=== PATIENT | male | born 1980 | race Two or more races ===

== ENCOUNTER 2025-10-04 13:38 | Outpatient (REF) | payer OTHER, SELFPAY ==
--- NOTE | 2025-10-04 | EMG_ITS ---
Chief complaint: Right hand numbness, right shoulder pain, neck pain Reason for referral: Evaluate for ulnar neuropathy Referred by: Leidy SMALL Procedure done: Right upper extremity NCS/EMG Precautions and/or limitations: None The limb temperature was monitored continuously and remained between 32-36 degrees C during the performance of the NCS. Nerve Conduction Studies Anti Sensory Summary Table ?Stim Site NR Onset (ms) Norm Onset (ms) Peak (ms) Norm Peak (ms) O-P Amp (?V) Norm O-P Amp Site1 Site2 Delta-0 (ms) Dist (cm) Jm (m/s) Norm Jm (m/s) Right Median Anti Sensory (2nd Digit) Wrist ? 3.0 3.7 <3.6 12.9 >10 Wrist 2nd Digit 3.0 14.0 47 Right Radial Anti Sensory (Thumb) Forearm ? 1.8 2.2 <3.1 12.2 Forearm Thumb 1.8 0.0 Right Ulnar Anti Sensory (5th Digit) Wrist ? 2.2 3.5 <3.7 21.9 >15.0 Wrist 5th Digit 2.2 14.0 64 Motor Summary Table ?Stim Site NR Onset (ms) Norm Onset (ms) O-P Amp (mV) Norm O-P Amp iAmp (mV) Amp (1st) (%) Site1 Site2 Delta-0 (ms) Dist (cm) Jm (m/s) Norm Jm (m/s) Right Median Motor (Abd Poll Brev) Wrist ? 4.8 <3.9 6.5 >4.5 7.8 100.0 Elbow Wrist 4.3 22.0 51 >45 Elbow ? 9.1 6.3 7.8 96.9 Right Ulnar Motor (Abd Dig Minimi) Wrist ? 3.0 <3.0 7.4 >5 8.7 100.0 B Elbow Wrist 4.0 21.0 53 >45 B Elbow ? 7.0 6.7 8.3 90.5 A Elbow B Elbow 1.4 10.0 71 >45 A Elbow ? 8.4 6.8 8.4 91.9 EMG ?Side Muscle Nerve Root Ins Act Fibs Psw Amp Dur Poly Recrt Int Pat Comment Right 1stDorInt Ulnar C8-T1 Nml Nml Nml Nml Nml 0 Nml Complete Right FlexCarpiUln Ulnar C8,T1 Nml Nml Nml Nml Nml 0 Nml Complete Right Biceps Musculocut C5-6 Nml Nml Nml Nml Nml 0 Nml Complete Right Triceps Radial C6-7-8 Nml Nml Nml Nml Nml 0 Nml Complete Right Deltoid Axillary C5-6 Nml Nml Nml Nml Nml 0 Nml Complete Paraspinal EMG ?Side Muscle Nerve Root Ins Act Fibs Psw Comment Right Cervical Upper Rami Nml Nml Nml Right Cervical Mid Rami Nml Nml Nml Right Cervical Lower Rami Nml Nml Nml FINDINGS: Right median motor nerve showed prolonged distal latency, normal amplitude and normal conduction velocity. Right median sensory nerve showed prolonged peak latency. All other nerves tested were within normal. Concentric needle EMG was performed in selected muscles of the right upper extremity and cervical paraspinals. Study did not reveal signs of electric abnormalities as shown in the table above. IMPRESSION: 1. This is an abnormal study. 2. There is electrodiagnostic evidence for right moderate-severe median neuropathy at the wrist, consistent with carpal tunnel syndrome. 3. There is no electrodiagnostic evidence for ulnar neuropathy, brachial plexopathy, or cervical radiculopathy. Thank you for your kind referral. Annabelle Benavides MD, KATHI Board Certified, [place] [employer] (ABPMR) Board Certified, [place] [employer] (ABEM) CODIN 78209 x 1 extremity MTDD
--- OUTSIDE RECORDS SUMMARY | 2025-10-04 14:03 | XMS_ITS | Clinical Summary ---
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 Active atorvastatin (LIPITOR) 20 mg tablet Take 1 tablet (20 mg total) by mouth 1 (one) time each day. 90 tablet 1 07/04/20 25 Active lisinopriL (PRINIVIL,ZESTRIL) 2.5 mg tablet Take 1 tablet (2.5 mg total) by mouth 1 (one) time each day. 90 tablet 1 07/04/20 25 Active meloxicam (Mobic) 15 mg tablet Take 1 tablet (15 mg total) by mouth 1 (one) time each day. 90 each 1 07/04/20 25 Active omeprazole (PriLOSEC) [address] capsule Take 1 capsule (20 mg total) by mouth 1 (one) time each day. Do not crush or chew. 90 capsule 1 07/04/20 25 Active semaglutide (OZEMPIC) 1 mg/dose (4 mg/3 mL) injection penIndications:Type 2 diabetes mellitus with microalbuminuria (CMS/HCC V24, CMS/HCC V28) Inject 1 mg under the skin every 7 (seven) days. 9 mL 1 07/04/20 25 Active metFORMIN XR (GLUCOPHAGE-XR) 500 mg 24 hr tablet TAKE 2 TABLETS BY MOUTH TWICE A DAY WITH MEALS 360 tablet 1 09/23/20 25 Active gabapentin (NEURONTIN) 100 mg capsule TAKE 1 CAPSULE BY MOUTH AT BEDTIME. 90 capsule 09/27/20 25 Active metFORMIN XR (GLUCOPHAGE-XR) 500 mg 24 hr tablet TAKE 2 TABLETS BY MOUTH TWICE A DAY WITH MEALS 360 tablet 1 04/01/20 25 025 Discontinued gabapentin (NEURONTIN) 100 mg capsule TAKE 1 CAPSULE BY MOUTH AT BEDTIME. 90 capsule 07/02/20 25 025 Discontinued Active Problems Problem Noted Date Diagnosed Date Gastroesophageal reflux disease without esophagi tis 12/22/2020 Nephropathy due to secondary diabetes ([facility] V24, [facility] V28) 03/20/2019 Hyperlipidemia LDL goal <100 12/15/2017 Overview (10/04/2024): Last Assessment & Plan: Continue atorvastatin 20 mg daily. Labs ordered to be done in the next few days. Discussed diet, exercise and weight loss. We will continue to monitor and adjust treatment as indicated. Obesity (BMI 30-39.9) 03/15/2017 Type 2 diabetes mellitus wit h microalbuminuria ([facility] V24, [facility] V28) 09/08/2015 Overview (10/04/2024): Uncontrolled type 2 diabetes mellitus with microalbuminuria Last Assessment & Plan: Continue Metformin 500 mg two tabs twice a day, Januvia 100 mg daily and glimepiride 4 mg twice a day. Continue lisinopril 2.5 mg daily for kidney protection secondary to nephropathy related to diabetes with microalbuminuria in 2019. Labs ordered to be done in the next few days. Discussed in detail diet to help control his blood sugars. Encouraged a low-fat, lean protein, high-fiber, low carbohydrate diet. Discussed avoiding sweets and junk food. Decrease the amount of bread, rice, pasta and potatoes. Regular exercise also encouraged to help with weight loss and provide cardiovascular benefit. Patient encouraged to check his blood sugars twice a day. Also encouraged to call back to diabetes clinic for follow-up appointment that they had reached out to him for. Recheck in office in 3 months, return sooner as needed. Encounters Date Type Department Care Team Description 08/14/2025 3:30 PM EDT Office Visit Orthopedic Surgery - [place] [address] [facility] [place] [address] [place] [phone] Leidy Alston PA Chronic right shoulder pain (Primary Dx); CMC arthritis; Right elbow pain 07/19/2025 3:15 PM EDT Consult Orthopedic Surgery [facility] [address] [facility] [place] [address] [place] [phone] Leidy Alston PA Biceps tendinitis of right upper extremity (Primary Dx); Medial epicondylitis of right elbow; Paresthesias in right hand; CMC arthritis 07/04/2025 3:30 PM EDT Office Visit [address] [phone] Rich Alberto PA Type 2 diabetes mellitus with microalbuminuria (CMS/HCC V24, CMS/[facility] V28) (Primary Dx); Nephropathy due to secondary diabetes (CMS/HCC V24, CMS/HCC V28); Hyperlipidemia LDL goal <100; Gastroesophageal reflux disease without esophagitis; Medial epicondylitis of right elbow; Chronic right shoulder pain from Last 3 Months Immunizations Immunization Administration Dates Next Due Influenza Quadravalent, MDCK , 0.5ml, preservative free (Flucelvax) 6mo and older 01/18/2024,08/13/2021,10/19/2019,12/21 Influenza trivalent, 0.5mL, preservative free (Fluarix; FluLaval; Fluzone) ages 6mo and older (Afluria) 3 years and older 12/18/2017,08/11/2016,09/08/2015,11/05,08/16/2013 Influenza trivalent, with pr eservative (Fluzone; Afluria) 6mo and older 08/18/2024 Influenza, Unspecified 11/29/2022 Pfizer (ages 12 & older) Biv alent, COVID-19 08/18/2024,11/29/2022 Pfizer SARS-CoV-2 COVID-19, mRNA, LNP-S, preservative free 11/02/2021 Pneumococcal polysaccharide 23 valent (Pneumovax 23) 2yo and older 03/12/2014 Tdap Tetanus diptheria acell ular pertussis (Boostrix; Adacel) 7yo and older 01/18/2024,03/09/2013 Surgical History Surgery Date Site/Laterality Comments OTHER SURGICAL HISTORY 2011 PROCEDURE: [place] I&D ABSCESS PERITONSILLAR OTHER SURGICAL HISTORY 04/2019 PROCEDURE: SURGICAL STENT; COMMENT: Left kidney for stone. Removed 05/[address] Mayen Medical History Medical History Date Comments Historical Medical DX DX:NO ACTI VE MEDICAL PROBLEMS; COMMENT: 2004 Peritonsillar abscess DX:Periton sillar abscess Type II or unspecified type diabetes mellitus with unspecified complication, not stated as uncontrolled DX:Type II or unspecified t ype diabetes mellitus with unspecified complication, not stated as uncontrolled Gastroesophageal reflux dise ase without esophagitis 12/22/2020 DX:Gastroesophageal reflux d isease without esophagitis Family History Medical History Relation Name Comments No Known Problems Aunt No Known Problems Brother Diabetes Father No Known Problems Maternal Grandfather No Known Problems Maternal Grandmother Cataracts Mother Diabetes Mother No Known Problems Other No Known Problems Paternal Grandfather No Known Problems Paternal Grandmother No Known Problems Sister 1 No Known Problems Sister 2 No Known Problems Uncle Blindness Neg Hx Glaucoma Neg Hx Macular degeneration Neg Hx Strabismus Neg Hx Relation Name Status Comments Aunt Brother Alive Father Alive Maternal Grandfather Maternal Grandmother Mother Alive dm Other Paternal Grandfather Paternal Grandmother Sister 1 Alive Sister 2 Alive Uncle Social History Tobacco Use Types Packs/Day Years Used Date Smoking Tobacco: Former Cigarettes 0 Q uit: 11/14/2015 Smokeless Tobacco: Never Tobacco Cessation:Counseling Given: Not Answered Alcohol Use Standard Drinks/Week Comments No 0 (1 standard drink = 0.6 oz pur e alcohol) Housing Instability Answer Date Recorde d Are you worried that in the next 2 months you may not have stable housing? No 07/03/2025 Food Access & Nutrition Answer Date Rec orded Do you have access to a vari ety of food including fruits and vegetables? Yes 07/03/2025 Health Literacy Answer Date Recorded How often do you need to hav e someone help you when you read instructions, pamphlets, or other written material from your doctor or pharmacy? Sometimes 07/03/2025 Caregiver: How often do you need to have someone help you when you read instructions, pamphlets, or other written material from your doctor or pharmacy? Not on file 07/03/2025 Financial Risk Answer Date Recorded How hard is it for you to pa y for the very basics like food, housing, medical care, and air conditioning / heating? Not very hard 07/03/2025 Transportation Answer Date Recorded Has the lack of transportati on kept you from meetings, work, or from getting things needed for daily living? No Has the lack of transportati on kept you from medical appointments or from getting medications? No 07/03/2025 Social Isolation Answer Date Recorded How often do you feel lonely or isolated from th ose around you? Never 07/03/2025 Food Risk Answer Date Recorded Within the past 12 months we worried whether our food would run out before we got money to buy more. Never true 07/03/2025 Within the past 12 months th e food we bought just didn't last and we didn't have money to get more. Never true 07/03/2025 Dependent Care Answer Date Recorded Do you need help finding or paying for care for your loved ones. For example, child support investigator or elderly care for an older adult? No 07/03/2025 Education Answer Date Recorded Do you think completing more education or training, like finishing a GED, going to college, or learning a trade, would be helpful for you? N/A 07/03/2025 Employment and Income Answer Date Recor ded During the last four weeks, have you been actively looking for work? No 07/03/2025 Living Situation Answer Date Recorded What is your living situation? Unrecognized valu e 07/03/2025 Sex and Gender Information Value Date Recorded Sex Assigned at Not on file Legal Sex Male 7:33 PM EST Gender Identity Not on file Sexual Orientation Not on file Obstetrics History Last Filed Vital Signs Vital Sign Reading Time Taken Comments Blood Pressure 114/78 07/04/2025 3:19 PM EDT Pulse 88 07/04/2025 3:19 PM EDT Temperature 36.6 C (97.8 F) 07/04/2025 3:19 PM EDT Respiratory Rate 14 07/04/2025 3:19 PM EDT Oxygen Saturation - - Inhaled Oxygen Concentration - - Weight 110 kg (243 lb) 08/14/2025 3:26 PM EDT Height 180.3 cm (5' 10.98 ) 08/14/2025 3:26 PM E DT Body Mass Index 33.91 08/14/2025 3:26 PM EDT Plan of Treatment Upcoming Encounters Date Type Department Care Team (Late st Contact Info) Description 10/14/2025 3:45 PM EST Office Visit Orthopedic Surgery - [place] 175 [facility] [address] [place] [phone] Leidy Alston PA 175 [facility] [place] [address] [place] [phone] 01/21/2026 4:00 PM EDT Office Visit Adult Medicine [facility] [address] [place] [address] Deb Marshall MD [address] [place] [phone] Health Maintenance Due Date Last Done Comments Colorectal Cancer Screening: Colonoscopy 1978 Hepatitis B Vaccines (1 of 3 - 19+ 3-dose series) 1997 Pneumococcal Vaccine: Pediatrics (0 to 5 Years) and At-Risk Patients (6 to 49 Years) (2 of 2 - PCV) 03/12/2015 03/12/2014 HIV Screening 10/23/2022 Hepatitis C Screening 10/23/2022 Diabetes: Annual Foot Exam 05/21/2025 05/21/2024 COVID-19 Vaccine ( season) 2025 08/18/2024, 11/29/2022, 11/02/2021, Additional history exists Influenza Vaccine (#1) 2025 , 01/18/2024, 11/29/2022, Additional history exists Diabetes: Annual Retina Eye Exam 08/14/2025 08/14/2024 Diabetes: Blood Sugar Control Test (HGBA1C) 01/04/2026 07/04/2025, 01/01/2025, 08/21/2024, Additional history exists Social Influencers of Health Screening 07/03/2026 07/03/2025 Diabetes: Annual Urine Albumin-Creatinine Ratio (uACR) 07/04/2026 07/04/2025, 05/21/2024 Diabetes: Annual GFR (Glomerular Filtration Rate) 07/04/2026 07/04/2025, 01/01/2025, 08/21/2024, Additional history exists Cholesterol Screening (Lipid Panel) 01/01/2030 01/01/2025, 05/21/2024 DTaP,Tdap,and Td Vaccines (3 - Td or Tdap) 01/17/2034 01/18/2024, 03/09/2013 RSV Immunization Adult Patients (1 - 1-dose 75+ series) 2053 Depression Screening Completed 07/03/2025 HIB Vaccines Aged Out No longer eligi ble based on patient's age to complete this topic HPV Vaccines Aged Out No longer eligi ble based on patient's age to complete this topic Hepatitis A Vaccines Aged Out No long er eligible based on patient's age to complete this topic IPV Vaccines Aged Out No longer eligi ble based on patient's age to complete this topic MMR Vaccines Aged Out No longer eligi ble based on patient's age to complete this topic Meningococcal ACWY Vaccine Aged Out N o longer eligible based on patient's age to complete this topic Meningococcal B Vaccine Aged Out No l onger eligible based on patient's age to complete this topic RSV Immunization Patients Under 20 months Aged Out No longer eligible based on patient's age to complete this topic Varicella Vaccines Aged Out No longer eligible based on patient's age to complete this topic Procedures Procedure Name Priority Date/Time Associated Diagnosis Comments NJ ARTHROCENTESIS/ASPIR ATION/INJECTION SMALL JOINT/BURSA WO U/S GUIDANCE Routine 08/14/2025 3:30 PM EDT CMC arthritis XR SHOULDER 2+ VIEWS RIGHT Routine 07/19/2025 3:48 PM EDT Pain XR ELBOW 3+ VIEWS RIGHT Routine 07/19/2025 3:46 PM EDT Pain XR HAND 3+ VIEWS RIGHT Routine 07/19/2025 3:46 PM EDT Pain HEMOGLOBIN A1C Routine 07/04/2025 3:59 PM EDT Type 2 diabetes mellitus with microalbuminuria ([facility] V24, [facility] V28) BASIC METABOLIC PANEL Routine 07/04/2025 3:59 PM EDT Nephropathy due to secondary diabetes ([facility] V24, CMS/[facility] V28) MICROALBUMIN CREATININE URINE RATIO Routine 07/04/2025 3:59 PM EDT Type 2 diabetes mellitus with microalbuminuria ([facility] V24, CMS/[facility] V28) POC GLUCOSE Routine 07/04/2025 3:23 PM EDT Type 2 diabetes mellitus with microalbuminuria ([facility] V24, CMS/[facility] V28) LIPID PANEL WITH REFLEX TO DIRECT LDL Routine 01/01/2025 8:56 AM EST Hyperlipidemia LDL goal <100 DIABETES EYE EXAM Routine 08/14/2024 DIABETES FOOT EXAM Routine 05/21/2024 from Last 3 Months or Most Recently Relevant to Health Maintenance Results * NJ ARTHROCENTESIS/ASPIRATION/INJECTION SMALL JOINT/BURSA WO U/S GUIDANCE (08/14/2025 3:30 PM EDT) Narrative Leidy Alston PA - 08/14/2025 3:30 PM EDT STACI Torre 08/14/2025 8:03 PM Hand / UE Inj/Asp: R thumb CMC for osteoarthritis Indications: pain Details: 25 G needle, dorsal approach Medications: 40 mg triamcinolone acetonide 40 mg/mL; 0.5 mL lidocaine 1 % Informed Consent: Laterality: Right Relevant images/test results available and reviewed: yes Health status cleared: Yes Procedure/treatment, purpose, treatment alternatives, risks/potential complications and benefits explained: yes Risk/complications/benefits details: Risks of infection, thinning of the skin, skin discoloration discussed. Discussed the possibility of increased pain, mild redness and swelling at injection site. Discussed uncommon side effect of facial flushing after cortisone injection. Patient may use ice, Tylenol or ibuprofen if they can take it. Benefits pain management Patient questions answered: yes Patient agrees, verbalizes understanding, and wants to proceed: yes Consent given by: Patient Informed consent discussion completed by Physician/ALVARADO with patient: Verbal Pre-procedure timeout performed: yes us Leidy SMALL IN CLINIC/BEDSIDE ORDERABLES Final Result * XR Shoulder 2+ Views Right (07/19/2025 3:48 PM EDT) Anatomical Region Laterality Modality Upper Extremities, Shoulder Right Comp uted Radiography Narrative 07/19/2025 4:32 PM EDT Date of Visit: 07/19/2025 Reason for visit: Right shoulder pain Views: AP, Grashey, Y right shoulder Comparison: X-rays from 2021 Findings: Mild AC joint arthritis. No glenohumeral arthritis. No proximal migration humeral head. No calcifications. Mild narrowing of subacromial space. No changes. Impression: Mild AC joint arthritis and narrowing the subacromial space. us Leidy SMALL IMG XR PROCEDURES Final Resul t * XR Elbow 3+ Views Right (07/19/2025 3:46 PM EDT) Anatomical Region Laterality Modality Upper Extremities, Elbow Right Compute d Radiography Narrative 07/19/2025 4:33 PM EDT Date of Visit: 07/19/2025 Reason for visit: Right elbow pain Views: AP, lateral, oblique right elbow Comparison: 2021 Findings: No fracture, dislocation or lytic lesions. Normal radiocapitellar bony relationships. There is a moderate-sized bone spur off the medial epicondyles Impression: Bone spur off medial epicondyles questionable old injury us Leidy SMALL IMG XR PROCEDURES Final Resul t * XR Hand 3+ Views Right (07/19/2025 3:46 PM EDT) Anatomical Region Laterality Modality Upper Extremities, Hand Right Computed Radiography Narrative 07/19/2025 4:34 PM EDT Date of Visit: 07/19/2025 Reason for visit: Right hand pain Views: AP, lateral, oblique right hand Comparison: None Findings: No fracture, dislocation or lytic lesions. Mild osteoarthritis of right thumb basal joint. Impression: Mild osteoarthritis right thumb basal joint Leidy SMALL IMG XR PROCEDURES Final Resul t * Microalbumin creatinine urine ratio (07/04/2025 3:59 PM EDT) Creatinine, Urine 129.0 mg/dL LAB CHEMISTRY METHOD 07/04/2025 7:48 PM EDT [facility] Microalb, Ur 23.7 0.0 - 29.0 mg/L LAB CHEMISTRY METHOD 07/04/2025 7:48 PM EDT [facility] Microalb/Creat Ratio 18 <30 mg/g creat LAB CHEMISTRY METHOD 07/04/2025 7:48 PM EDT [facility] Urine Urine specimen obtained by clean catch procedure / Unknown Non-blood Collection / Unknown 07/04/2025 3:59 PM EDT 07/04/2025 3:59 PM EDT Rich SMALL LAB URINE ORDERABLES Final Res ult [facility] [address] [place] [address], * (ABNORMAL) Hemoglobin A1c (07/04/2025 3:59 PM EDT) Hemoglobin A1C 6.7(H) <6.5 % LAB CHEMISTRY METHOD 07/04/2025 11:12 PM EDT [facility] Mean Bld Glu Estim. 146 mg/dL LAB CHEMISTRY METHOD 07/04/2025 11:12 PM EDT [facility] Blood Venous blood specimen / Unknown Venipuncture / Unknown 07/04/2025 3:59 PM EDT 07/04/2025 3:59 PM EDT us Rich SMALL LAB BLOOD ORDERABLES Final Res ult [facility] [address] [place] [address], * (ABNORMAL) Basic metabolic panel (07/04/2025 3:59 PM EDT) Sodium 136 133 - 145 mmol/L LAB CHEMISTRY METHOD 07/04/2025 6:25 PM EDT [facility] Potassium 3.9 3.5 - 5.5 mmol/L LAB CHEMISTRY METHOD 07/04/2025 6:25 PM [facility] Chloride 105 96 - 110 mmol/L LAB CHEMISTRY METHOD 07/04/2025 6:25 PM [facility] CO2 25 21 - 32 mmol/L LAB CHEMISTRY METHOD 07/04/2025 6:25 PM [facility] Anion Gap 6 3 - 11 LAB CHEMISTRY METHOD 07/04/2025 6:25 PM [facility] Glucose 78 70 - 100 mg/dL LAB CHEMISTRY METHOD 07/04/2025 6:25 PM [facility] BUN 15 5 - 25 mg/dL LAB CHEMISTRY METHOD 07/04/2025 6:25 PM [facility] Creatinine 0.66(L) 0.70 - 1.30 mg/dL LAB CHEMISTRY METHOD 07/04/2025 6:25 PM [facility] eGFR 117 >=60 mL/min/1. 73m2 LAB CHEMISTRY METHOD 07/04/2025 6:25 PM [facility] Comment:Calculation based on the Chronic Kidney Disease Epidemiology Collaboration (CKD-EPI) equation refit without adjustment for race. BUN/Creatinine Ratio 22.7 LAB CHEMISTRY METHOD 07/04/2025 6:25 PM [facility] Calcium 9.3 8.5 - 10.5 mg/dL LAB CHEMISTRY METHOD 07/04/2025 6:25 PM EDT [facility] Blood Venous blood specimen / Unknown Venipuncture / Unknown 07/04/2025 3:59 PM EDT 07/04/2025 3:59 PM EDT us Rich SMALL LAB BLOOD ORDERABLES Final Res ult [facility] [address] [place] [address], [place] [phone] * POC glucose manually resulted (07/04/2025 3:23 PM EDT) Glucose POC 70 mg/dL Blood Capillary blood specimen / Unknown 07/04/2025 3:23 PM EDT us Rich SMALL POINT OF CARE TEST ENTER/EDIT ORDERABLES Final Result * Lipid panel with reflex to direct LDL (01/01/2025 8:56 AM EST) Cholesterol 165 0 - 200 mg/dL LAB CHEMISTRY METHOD 01/01/2025 1:48 PM [facility] Triglycerides 141 0 - 150 mg/dL LAB CHEMISTRY METHOD 01/01/2025 1:48 PM EST [facility] HDL 69 >=40 mg/dL LAB CHEMISTRY METHOD 01/01/2025 1:48 PM EST [facility] LDL Calculated 68 0 - 100 mg/dL LAB CHEMISTRY METHOD 01/01/2025 1:48 PM [facility] VLDL Cholesterol Saul 28.2 mg/dL LAB CHEMISTRY METHOD 01/01/2025 1:48 PM EST [facility] Non HDL Chol. (LDL+VLDL) 96 <145 mg/dL LAB CHEMISTRY METHOD 01/01/2025 1:48 PM EST [facility] Chol/HDL Ratio 2.4 0.0 - 4.4 LAB CHEMISTRY METHOD 01/01/2025 1:48 PM EST [facility] Blood Venous blood specimen / Unknown Venipuncture / Unknown 01/01/2025 8:56 AM EST 01/01/2025 8:56 AM EST Rich SMALL LAB BLOOD ORDERABLES Final Res ult [facility] [address] [place] [address], * Diabetes Eye Exam (08/14/2024) Diabetes: Annual Retina Eye Exam Abstracted Historical Provider HEALTH MAINTENANCE Final Result * Diabetes Foot Exam (05/21/2024) Diabetes: Annual Foot Exam Abstracted Historical Provider HEALTH MAINTENANCE Final Result from Last 3 Months or Most Recently Relevant to Health Maintenance Insurance [facility] Care Teams Flame Anne[employer] Machine Operator Relationship Specialty Start Date End Date Deb Marshall MD [address] [place] [phone] PCP - General Internal Medicine 10/11/22
--- OUTSIDE RECORDS SUMMARY | 2025-10-04 14:03 | XMS_ITS ---
Author Name [facility] Organization Unknown Care Team Organization Name Specialty Phone Email Start Date End Da te [facility] Termed, PROVIDER Primary Care 09/13/202306/14 [facility] Deb Marshall Primary Care 03/21/2023 024
== END 2025-10-04 13:39 | disposition home or self-care (01) ==
LOC: HO.NEURO 13:38
PROVIDERS: PCP Internal Medicine; Visit Provider Physician Assistant
DX: R20.2 Paresthesia of skin (principal); M25.511 Pain in right shoulder; M54.2 Cervicalgia
CPT/HCPCS: 95886; 95909

== ENCOUNTER → 2025-10-04 13:42 | Outpatient (BNV) | payer OTHER, SELFPAY | PROVIDERS: PCP Internal Medicine; Visit Provider Physical Medicine & Rehabilitation | DX: G56.01 Carpal tunnel syndrome, right upper limb (principal) | CPT/HCPCS: 95886; 95909 ==